=== PATIENT | male | born 2000 | race Caucasian/White ===

== ENCOUNTER 2025-03-23 15:44 | Emergency (ER) | payer OTHER ==
[~2025-03-23] VITALS: Ht 193 cm; Wt 128.9 kg
[2025-03-23] MEDS: NS (Normal Saline) 0.9% 1,000 ML IV SCH (16:50)
[2025-03-23] MEDS: KETAMINE HCL 200 MG/20 ML VIAL IV ONE (17:06)
[2025-03-23] MEDS: KETOROLAC 30 MG/ML 1 ML VIAL IV ONE (18:06)
[2025-03-23] MEDS ORDERED: KETO-204 PO (18:37)
[2025-03-23 19:18] VITALS: BP 160/80; TEMP 98.9; O2SAT 97
[2025-03-23] MEDS: NORCO 5/325MG TABLET (HOME DOSE PACK) PO ONE (19:22)
== END 2025-03-23 19:31 | disposition home or self-care (01) ==
LOC: M ED 18:44
DX: S43.015A Anterior dislocation of left humerus, initial encounter (principal); W00.0XXA Fall on same level due to ice and snow, initial encounter; Z79.899 Other long term (current) drug therapy; F17.200 Nicotine dependence, unspecified, uncomplicated; F10.10 Alcohol abuse, uncomplicated; Y92.89 Other specified places as the place of occurrence of the external cause; Y93.89 Activity, other specified; Y99.9 Unspecified external cause status
CPT/HCPCS: 23650; 73030; 73200; 93041; 94760; 96361; 96374; 96375; 99152; 99285; J1885; J3010